=== PATIENT | male | born 1985 | race Caucasian/White ===

== ENCOUNTER → 2023-12-08 09:00 | Outpatient (REF) | payer MEDICAID, SELFPAY ==
--- NOTE | 2023-12-08 | CA_ITS ---
Acquisition Time: 2023-12-08 09:55:22 Total Exercise Time: 00:02:56 Test Indications: Chest Pain Medications: See H Protocol: CARLOS Max HR: 139 BPM 76% of Pred: 182 BPM Max BP: 138/060 mmHG Max Work Load: 4.6 METS Exercise stress test exercise 2 min 26 sec of Carlos protocol 73-75% MPHR, with moderate to significant SOB. without chest discomfort, without arrhythmias seen through artifact, with nondiagnoisitic EKGs due to suboptimal HR. Test reviewed with Dr. Pina If further testing is required pharmacolgical stress test recommended. Referred By: Ross Navarro Overread By: Amy Sullivan
== END ==
LOC: HO.CARD 09:00
PROVIDERS: PCP Internal Medicine; Visit Provider Internal Medicine
DX: R07.89 Other chest pain (principal)
CPT/HCPCS: 93017

== ENCOUNTER 2024-05-10 09:40 | Outpatient (REF) | payer MEDICAID, SELFPAY ==
[2024-05-10 14:06] LABS: MANUAL DIFF FLAG NO
[2024-05-10 14:08] LABS: Basophils Percent Auto 0.5 % (0-2); Eosinophils Absolute Auto 0.5 X10*3/uL (0.0-0.4); Eosinophils Percent Auto 7.4 % (0-4); Hematocrit 38.6 % (42.0-52.0); Imm Gran Abs Auto 0.06 X10*3/uL (0.00-0.03); Lymphocytes Absolute Auto 1.8 X10*3/uL (1.2-4.9); Lymphocytes Percent Auto 28.7 % (20-40); Mean Corpuscular HGB Conc 33.7 g/dl (31.0-36.0); Mean Corpuscular Hemoglobin 28.1 pg (27.0-33.0); Mean Corpuscular Volume 83.4 fL (80.0-98.0); Mean Platelet Volume 9.2 fL (9.4-12.4); Monocytes Absolute Auto 0.6 X10*3/uL (0.1-1.2); Monocytes Percent Auto 8.9 % (2-11); Neutrophils Absolute Auto 3.3 x10*3/uL (2.0-8.3); Neutrophils Percent Auto 53.5 % (45-73); Platelet Count 238 X10*3/uL (160-400); Red Blood Count 4.63 X10*6/uL (4.60-5.80); White Blood Count 6.2 X10*3/uL (4.8-10.8)
[2024-05-10 14:28] LABS: Alanine Aminotransferase 36 U/L (0-40); Albumin Level 4.4 g/dL (3.5-5.0); Alkaline Phosphatase 62 U/L (39-117); Anion Gap 14 (12-20); Aspartate Amino Transferase 33 U/L (5-37); Bilirubin Total 0.2 mg/dL (0.0-1.0); Blood Urea Nitrogen 16 mg/dL (9-16); Calcium 10.1 mg/dL (8.4-10.2); Carbon Dioxide 20 mmol/L (22-29); Chloride 109 mmol/L (96-108); Cholesterol 130 mg/dL (<200); Estimated Glomerular Filt Rate > 60; Glucose Random 96 mg/dL (60-115); HDL Cholesterol 42 mg/dL (>40); LDL Cholesterol Calculated 66 mg/dL (<100); Potassium 3.9 mmol/L (3.3-5.1); Sodium 139 mmol/L (135-145); Total Protein 7.9 g/dL (6.5-8.0); Triglycerides 110 mg/dL (<150)
[2024-05-10 14:37] LABS: Creatinine Urine 191.98 mg/dL; Microalbum/Creatinine Ratio Ur 20.8 ug/mg cr (<30)
[2024-05-10 14:53] LABS: Folate 9.1 ng/mL (> or = 4.0); Vitamin B12 406 pg/mL (200-900)
== END 2024-05-10 09:41 | disposition home or self-care (01) ==
LOC: HO.CHCLDS 09:40
PROVIDERS: Visit Provider Internal Medicine
DX: E11.65 Type 2 diabetes mellitus with hyperglycemia (principal); Z79.4 Long term (current) use of insulin
CPT/HCPCS: 36415; 80053; 80061; 82043; 82570; 82607; 82746; 85025